=== PATIENT | male | born 1960 | race Caucasian/White ===

== ENCOUNTER 2020-01-30 09:06 | Day surgery (SDC) | payer OTHER ==
[~2020-01-30] VITALS: Ht 180.3 cm; Wt 125.0 kg
[2020-01-30] MEDS ORDERED: PROPOFOL 1% 20 ML VIAL IVP ONE (09:07)
[2020-01-30] MEDS ORDERED: SODIUM CHLORIDE 0.9% 1,000 ML IV ONE (09:45)
== END 2020-01-30 12:45 | disposition home or self-care (01) ==
LOC: SURGERY 09:06
PROVIDERS: ATTEND Internal Medicine Gastroenterology
DX: Z12.11 Encounter for screening for malignant neoplasm of colon (principal); D12.2 Benign neoplasm of ascending colon; G47.33 Obstructive sleep apnea (adult) (pediatric); D50.9 Iron deficiency anemia, unspecified; Z86.010 Personal history of colon polyps; Z98.890 Other specified postprocedural states; Z98.84 Bariatric surgery status; Z11.59 Encounter for screening for other viral diseases
CPT/HCPCS: 45385; 87635; 88305; C1769; J2704